=== PATIENT | female | born 1975 | race African-American/Black ===

== ENCOUNTER 2020-12-17 10:53 | Emergency (ER) | payer OTHER, SELFPAY ==
[2020-12-17 11:09] VITALS: BP 145/87; PULSE 78; RESP 12; TEMP 36.3; O2SAT 100
--- NOTE | 2020-12-17 11:30 | ED.FEMALEGU ---
HPI - Female Genitourinary General Chief complaint: Urogenital-Female Stated complaint: POS UTI Time Seen by Provider: 12/17/20 11:18 Source: patient and RN notes reviewed Mode of arrival: ambulatory Limitations: no limitations History of Present Illness HPI Narrative: Patient presents today complaining of urinary frequency and tingling with urination. Symptoms began today. Denies hematuria, abdominal pain, fever, back pain. She has not tried any [id number] treatment prior to arrival. Patient was on Flagyl last month for bacterial vaginosis. She stopped her menstrual cycle last week. Related Data Home Medications Medication Instructions Recorded Confirmed amlodipine 12/17/20 Allergies Allergy/AdvReac Type Severity Reaction Status Date / Time No Known Allergies Allergy Verified 12/17/20 11:01 Review of Systems Review of Systems: Narrative: CONSTITUTIONAL: Denies body aches, fever, chills, or sweats. EYES: Denies visual changes, redness, or discharge. ENT: Denies rhinorrhea, congestion, sore throat, or otalgia. CARDIOVASCULAR: Denies chest pain, palpitations, or edema. RESPIRATORY: Denies cough or dyspnea. GASTROINTESTINAL: Denies abdominal pain, nausea, vomiting, or diarrhea. GENITOURINARY: Denies dysuria or hematuria. + Tingling with urination, urinary frequency SKIN: Denies rash, itching, or wounds. MUSCULOSKELETAL: Denies back pain, joint pain, or myalgia. NEUROLOGIC: Denies headache, numbness, tingling, or weakness. PSYCH: Denies depression or anxiety. PMFSH Comments At time of signature, I have reviewed and agree with nursing past medical, surgical, social and family history unless otherwise noted. Please see nursing chart for further information. There is no relevant family history pertinent to the presenting complaint Exam Narrative: Exam Narrative: GENERAL: Well-appearing, well-nourished, and in no acute distress. HEAD: Normocephalic, atraumatic. EYES: EOMI. No redness or drainage. Conjunctivae normal. ENT: Mucous membranes pink and moist. NECK: Normal AROM. CHEST: No respiratory distress. Clear to auscultation. HEART: Regular rate and rhythm. No murmur appreciated. Normal peripheral pulses. ABDOMEN: Soft, nontender, nondistended, normal active bowel sounds. -CVAT MUSCULOSKELETAL: No bony tenderness. EXTREMITIES: Normal range of motion. No edema. SKIN: Warm, dry, no rash. Capillary refill normal. Normal skin turgor. NEURO: No focal deficits. Alert and oriented x3. Gait steady. PSYCH: Normal affect. No signs of depression or anxiety. Course Vital Signs Vital signs: Vital Signs Temperature 97.3 F L 12/17/20 11:09 Pulse Rate 78 12/17/20 11:09 Respiratory Rate 12 12/17/20 11:09 Blood Pressure 145/87 H 12/17/20 11:09 Pulse Oximetry 100 12/17/20 11:09 Temperature 97.3 F L 12/17/20 11:09 Pulse Rate 78 12/17/20 11:09 Respiratory Rate 12 12/17/20 11:09 Blood Pressure 145/87 H 12/17/20 11:09 Pulse Oximetry 100 12/17/20 11:09 Reviewed. Pt has been instructed to follow up with her PCP regarding her elevated blood pressure today. MDM - Female Genitourinary Differential Diagnosis Differential diagnosis: Likely urinary tract infection and other (Pyelonephritis, interstitial cystitis, vulvovaginitis) Lab Data Attestation: I reviewed the patient's lab results. Labs: Urine Glucose Negative Reference Range: Negative Urine Bilirubin Negative Reference Range: Negative Urine Ketone Negative Reference Range: Negative Urine Specific [place] 1.030 Reference Range:1.001-1.035 Urine Blood 3+ Reference Range: Negativ
== END 2020-12-17 11:37 | disposition home or self-care (01) ==
PROVIDERS: Emergency Provider Nurse Practitioner; PCP Family Medicine
DX: N30.01 Acute cystitis with hematuria (principal); I10 Essential (primary) hypertension
CPT/HCPCS: 81003; 87077; 87086; 87088; 99203; G0463

== ENCOUNTER 2021-06-08 10:10 | Emergency (ER) | payer OTHER, SELFPAY ==
[2021-06-08 10:26] VITALS: BP 147/91; PULSE 81; RESP 18; TEMP 36.4; O2SAT 100
--- NOTE | 2021-06-08 11:39 | ED.GENADULT ---
HPI - General Adult General Chief complaint: Urogenital-Female Stated complaint: POS UTI Source: patient Mode of arrival: ambulatory Limitations: no limitations History of Present Illness HPI narrative: Patient is a 45-year-old -[place] female who presents to the urgent care via POV for evaluation of urinary symptoms that have been present for 2 days. Additionally, she reports dysuria and urinary frequency. Azo improves symptoms. Nothing worsens symptoms. She believes drinking coffee and orange juice caused her UTI. History of UTIs. Today symptoms are similar to previous UTIs. Related Data Home Medications Medication Instructions Recorded Confirmed amlodipine 12/17/20 Allergies Allergy/AdvReac Type Severity Reaction Status Date / Time No Known Allergies Allergy Verified 06/08/21 10:24 Review of Systems Review of Systems: Denies history of urinary pyelonephritis and renal calculi. Pertinent negatives: fever, chills, sweats, change in appetite, poor p.o. intake, malaise, recent weight loss, myalgias, lymphadenopathy, headache, dizziness, STD exposure, painful intercourse, abdominal pain, constipation, nausea, vomiting, diarrhea, abdominal cramping, hematuria, urinary urgency, back pain, urinary incontinence, vaginal bleeding/discharge, penile drainage, testicular pain, shortness of breath, chest pain, and heart palpitations/murmurs. [facility] Past Medical History Medical History (Updated 06/08/21 @ 11:41 by Patricia Felder, LEARNING OFFICER, ) Cystitis Hypertension Exam Narrative: GENERAL: Well-appearing, well-nourished, and in no acute distress. HEAD: Normocephalic, atraumatic. NECK: Supple. No lymphadenopathy or nuchal rigidity. CHEST: Lung sounds are clear to auscultation in bilateral lung bella. No respiratory distress. HEART: Regular rate and rhythm. No murmur, gallop, or rub heard. ABDOMEN: Soft, non-tender, non-distended, normal active bowel sounds in all quadrants. No guarding. No rebound tenderness. No pulsatile or palpable abdominal mass(es). No CVATGU: Bladder non-distended, non-tender EXTREMITIES: Normal range of motion. No edema. SKIN: Warm, dry, no rash. No skin color changes. Excellent turgor. NEURO: No focal deficits. Alert and oriented x3. SPECIAL OBSERVATIONS: Smiling. Laughing. No evidence of discomfort. Course Vital Signs Vital signs: Vital Signs Temperature 97.6 F 06/08/21 10:26 Pulse Rate 81 06/08/21 10:26 Respiratory Rate 18 06/08/21 10:26 Blood Pressure 147/91 H 06/08/21 10:26 Pulse Oximetry 100 06/08/21 10:26 Temperature 97.6 F 06/08/21 10:26 Pulse Rate 81 06/08/21 10:26 Respiratory Rate 18 06/08/21 10:26 Blood Pressure 147/91 H 06/08/21 10:26 Pulse Oximetry 100 06/08/21 10:26 Due to an elevated blood pressure, I had a detailed discussion with the patient and/or guardian regarding the need for follow-up with their primary care provider within the next 3-4 days. Patient verbalized understanding and agreed. Medical Decision Making Differential Diagnosis Differential Diagnosis: Nephrolithiasis, urinary tract infection, pyelonephritis, frequency of micturition, dysuria Medical Records Medical records reviewed: Yes I reviewed the external patient's medical records. Vital Signs Vital Signs: Vital Signs Temperature 97.6 F 06/08/21 10:26 Pulse Rate 81 06/08/21 10:26 Respiratory Rate 18 06/08/21 10:26 Blood Pressure 147/91 H 06/08/21 10:26 Pulse Oximetry 100 06/08/21 10:26 Temperature 97.6 F 06/08/21 10:26 Pulse Rate 81 06/08/21 10:26 Respiratory Rate 18 06/08/21 10:26 Blood Pressure 147/91 H 06/08/21 10:26 Pulse Oximetry 100 06/08/21 10:26 Lab Data Lab results reviewed: Yes I reviewed the patient's lab results. Lab results narrative: Urine dipstick: Color: Yellow; Clarity: Cloudy; Glucose: negative; Bilirubin: negative; Ketones: negative, Specific [place]: 1.025; Blood: 2+; pH: 6.0 Protein: 2+; URO: 0.
== END 2021-06-08 11:00 | disposition home or self-care (01) ==
PROVIDERS: Emergency Provider Nurse Practitioner Family; PCP Family Medicine
DX: N30.90 Cystitis, unspecified without hematuria (principal); I10 Essential (primary) hypertension
CPT/HCPCS: 81003; 87086; 87088; 99213; G0463

== ENCOUNTER 2021-07-28 10:38 | Emergency (ER) | payer OTHER, SELFPAY ==
--- NOTE | 2021-07-28 10:44 | ED.FEMALEGU ---
HPI - Female Genitourinary General Chief complaint: Urogenital-Female Stated complaint: uti symptoms Time Seen by Provider: 07/28/21 10:40 Source: patient and RN notes reviewed History of Present Illness HPI Narrative: Patient is a 46-year-old female who presents the urgent care with complaints of a possible UTI. Patient states that this morning she noticed increased urinary frequency and slight dysuria. Patient does have a history of UTIs and states that she has had 1 in the last 6 months treated at our facility. Patient states that she is increase her water intake this morning but is otherwise not taken anything [id number] for her symptoms. Patient states that she was seeing a urologist and they quit taking her insurance. Patient states that approximately 1 year ago they told her that everything was fine . Patient denies of any fever, chills, nausea, vomiting, abdominal pain, low back pain. No other acute complaints. No acute distress noted. Patient aware of the plan of care. Some parts of this dictation were generated by voice recognition software and may contain typographical and/or grammatical inaccuracies. Related Data Home Medications Medication Instructions Recorded Confirmed amlodipine 5 mg PO DAILY 12/17/20 06/08/21 Allergies Allergy/AdvReac Type Severity Reaction Status Date / Time No Known Allergies Allergy Verified 06/08/21 10:24 Review of Systems Review of Systems: CONSTITUTIONAL: Denies fever, chills, or sweats. EYES: Denies visual changes, redness, or discharge. ENT: Denies rhinorrhea, congestion, sore throat, or otalgia. CARDIOVASCULAR: Denies chest pain, palpitations, or edema. RESPIRATORY: Denies cough or dyspnea. GASTROINTESTINAL: Denies abdominal pain, nausea, vomiting, or diarrhea. GENITOURINARY: Reports of urinary frequency and dysuria SKIN: Denies rash or itching. MUSCULOSKELETAL: Denies back pain, joint pain, or myalgia. NEUROLOGIC: Denies headache, numbness, or weakness. All other systems reviewed are negative, except as documented in HPI. [facility] Past Medical History Medical History (Updated 07/28/21 @ 11:03 by JIM Méndez) Cystitis Hypertension Comments At the time of my signature, I reviewed and agree with the nursing past medical, surgical, social, and family history. There is no relevant family history pertinent to the patient complaint. Exam Narrative: GENERAL: This is a well-nourished, well-developed patient, in no apparent distress. HEAD: normocephalic, atraumatic. EYES: PERRL. Sclera clear/white. Vision is grossly intact. EARS: External ears normal NOSE: External nose normal with no obvious nasal discharge, nares without redness, no rhinorrhea. THROAT: Mucous membranes moist NECK: Neck supple CARDIOVASCULAR: Regular rate and rhythm without murmurs, gallops, or rubs. RESPIRATORY: Clear to auscultation. Breath sounds equal bilaterally. No wheezes, rales, or rhonchi. GASTROINTESTINAL: Abdomen soft, non-tender, nondistended. Bowel sounds are active. SKIN: warm, intact with no suspicious lesions or rash, good texture and turgor. NEURO: awake, alert, and oriented to person, place and time. There were no obvious focal neurologic abnormalities. EXTREMITIES: No clubbing, cyanosis, or edema. BACK: Negative bilateral CVA tenderness Course Vital Signs Vital signs: Vital Signs Temperature 97.8 F 07/28/21 10:48 Pulse Rate 85 07/28/21 10:48 Respiratory Rate 16 07/28/21 10:48 Blood Pressure 152/84 H 07/28/21 10:48 Pulse Oximetry 100 07/28/21 10:48 Temperature 97.8 F 07/28/21 10:48 Pulse Rate 85 07/28/21 10:48 Respiratory Rate 16 07/28/21 10:48 Blood Pressure 152/84 H 07/28/21 10:48 Pulse Oximetry 100 07/28/21 10:48 Reviewed-patient is informed that they may have pre-hypertension or hypertension based on a blood pressure reading in the department. I recommend the patient call the primary care provider listed on their dischar
[2021-07-28 10:48] VITALS: BP 152/84; PULSE 85; RESP 16; TEMP 36.6; O2SAT 100
== END 2021-07-28 11:17 | disposition home or self-care (01) ==
PROVIDERS: Emergency Provider Nurse Practitioner Family; PCP Family Medicine
DX: N39.0 Urinary tract infection, site not specified (principal); I10 Essential (primary) hypertension
CPT/HCPCS: 81003; 87086; 87088; 99213; G0463

== ENCOUNTER 2022-10-15 10:54 | Outpatient (CLI) | payer OTHER, SELFPAY ==
--- NOTE | ~2022-10-15 | US_ITS ---
EXAMINATION: US pelvic complete w TV DATE: 10/15/2022 11:50 INDICATION: Pelvic pain TECHNIQUE: Multiple transabdominal and endovaginal sonographic images of the pelvis were obtained. COMPARISON: None. FINDINGS: The uterus measures 10.6 x 5.1 x 7.4 cm. There are multiple uterine masses which have the a ppearance of intramural fibroids. The largest measures up to 2.6 cm anteriorly in the lower body of t he uterus. The endometrial complex measures 3 mm. The right ovary measures 2.3 x 1.3 x 2.4 cm. The le ft ovary measures 2.3 x 3.4 x 2.7 cm and contains a 2.9 cm cyst. There is normal vascular flow in the left ovary. Vascular flow is not well demonstrated in the right ovary however the ovary is normal in size and appearance. Finding may be due to position of the ovary. There is no free fluid in the pelv is. IMPRESSION: 1. Multiple uterine fibroids. Reviewed, dictated and finalized at location B. USTER
== END 2022-10-15 10:55 | disposition home or self-care (01) ==
LOC: ANHIMG 10:58
PROVIDERS: PCP Family Medicine; Visit Provider Nurse Practitioner
DX: D25.9 Leiomyoma of uterus, unspecified (principal)
CPT/HCPCS: 76830; 76856

== ENCOUNTER 2023-04-28 08:56 | Outpatient (CLI) | payer OTHER, SELFPAY ==
--- NOTE | ~2023-04-28 | MR_ITS ---
EXAMINATION: MR lower leg LT wo/w con DATE: 04/28/2023 10:00 INDICATION: Painful mass of the anterior lower leg. TECHNIQUE: Magnetic resonance imaging (MRI) of the left lower leg was performed without and with 18 m L MultiHance intravenous contrast. COMPARISON: None. FINDINGS: Bone alignment is normal. No fracture. Bone marrow signal intensity is normal. There is a s mall knee joint effusion. There is a small Alexandre's cyst. There is a skin marker anterior to the proxi mal tibia. There is subcutaneous fat stranding anterior to the proximal tibia. IMPRESSION: 1. Subcutaneous fat stranding anterior to the proximal tibia, consistent with edema versus inflammati on. Reviewed, dictated and finalized at location E. IMPRESSION: 1. Subcutaneous fat stranding anterior to the proximal tibia, consistent with e david versus inflammation.
== END 2023-04-28 08:57 | disposition home or self-care (01) ==
PROVIDERS: PCP Physician Assistant Medical; Visit Provider Orthopaedic Surgery
DX: M79.662 Pain in left lower leg (principal); M79.89 Other specified soft tissue disorders
CPT/HCPCS: 73720; A9577

== ENCOUNTER 2023-10-08 14:36 | Outpatient (CLI) | payer OTHER, SELFPAY ==
--- NOTE | ~2023-10-08 | US_ITS ---
EXAMINATION: US pelvic complete w TV DATE: 10/08/2023 16:07 INDICATION: Abnormal uterine bleeding Comparison:Ultrasound dated 10/15/2022 TECHNIQUE: Multiple transabdominal and endovaginal sonographic images of the pelvis performed. FINDINGS: The uterus measures 10.1 x 5.4 x 6.9 cm. Uterine myometrium is difficult to penetrate. No d iscrete fibroids identified. The endometrial complex measures 4 mm. The right ovary measures 2.1 x 1 x 1.3 cm and the left ovary measures 1.9 x 2.1 x 2 cm. There is a le ft ovarian cyst measuring 1.7 cm. There are small follicles in each ovary. Normal doppler signal in b oth ovaries. There is no free fluid in the pelvis. There are no abnormal masses seen on either side. IMPRESSION: 1. Small 1.7 cm left ovarian cyst. Reviewed, dictated and finalized at location L. PURSER
== END 2023-10-08 14:37 | disposition home or self-care (01) ==
PROVIDERS: PCP Physician Assistant Medical; Visit Provider Nurse Practitioner
DX: N93.8 Other specified abnormal uterine and vaginal bleeding (principal); N83.202 Unspecified ovarian cyst, left side
CPT/HCPCS: 76830; 76856

== ENCOUNTER 2023-10-28 13:17 | Outpatient (CLI) | payer OTHER, SELFPAY ==
[2023-10-28 14:38] LABS: Anion Gap 7 mmol/L (8-16); Blood Urea Nitrogen 14 mg/dL (7-17); Calcium 9.3 mg/dL (8.4-10.2); Carbon Dioxide 31 mmol/L (22-30); Chloride 101 mmol/L (98-107); Estimated Glomerular Filt Rate > 60; Glucose 104 mg/dL (65-110); Potassium 3.3 mmol/L (3.4-5.0); Sodium 139 mmol/L (137-145)
== END 2023-10-28 13:18 | disposition home or self-care (01) ==
LOC: ANHSURGERY 13:18
PROVIDERS: Anesthesiology; PCP Physician Assistant Medical; Visit Provider Obstetrics & Gynecology Gynecology
DX: Z79.899 Other long term (current) drug therapy (principal); Z01.818 Encounter for other preprocedural examination
CPT/HCPCS: 36415; 80048

== ENCOUNTER 2023-11-04 01:11 | Day surgery (SDC) | payer OTHER, SELFPAY ==
[2023-10-24 15:11] VITALS: BMI 36.3
--- NOTE | 2023-10-24 15:29 | SUR.PREOP ---
Report to the Outpatient Waiting Room, entrance under the green pavilion located off [facility], at time 1015 on date 11/04/23. Planned Procedure Time: 1215. Time changes happen often and if your time is changed the preop area will call you the afternoon before. - You and your visitor will be asked to self-screen and do not enter if you have any COVID symptoms. - A mask is optional within the hospital at this time. Patients may have clear liquids (water, carbonated beverages, clear teas, apple juice) until 3 hours prior to surgery with a maximum of 20 ounces. - No food from midnight until time of surgery - Infants may have breast milk until 4 hours before surgery, formula 6 hours prior to surgery. - Children will be allowed to drink immediately following surgery. If applicable, please bring a bottle or sippy cup to assist with drinking. Juice, water, soda, and popsicles are readily available. For infants on formula, please bring formula the day of surgery. Pacifiers are allowed. Take the following medications with a SIP of water the morning of surgery: AMLODIPINE DO NOT STOP ANY OF YOUR OTHER PRESCRIPTION MEDICATIONS PRIOR TO SURGERY ?EXCEPT THE FOLLOWING Medications to discontinue per physician STOP ALL SUPPLIMENTS AND VITAMINS 3 DAYS PRIOR Date to take last dose 10/20/23 Please no make-up, nail indonesian, hairspray, perfume, deodorant, or body powder the day of surgery. No jewelry (including any body piercings) or valuables the day of surgery, leave them at home. Please take a shower or bath the night before, or the morning of, surgery with an antibacterial soap. Wear comfortable, loose fitting clothing. Children are encouraged to wear pajamas. - Jewelry must be removed prior to entering the operating room. Rings and piercings that are not removed may be cut off. - The hospital will not accept responsibility for valuables. - Please leave all valuables, including medications, at home the day of surgery. If you are going home after surgery, a licensed tractor driver teamster must drive you home. - NO public transportation without another adult if you receive anesthesia. - We recommend that an adult stay with you for 24 hours following discharge. - We also recommend that you do not drive, make important decision, drink alcoholic beverages, or take any drugs that were not prescribed by your health care provider for at least 24 hours after your discharge time. For Pediatric surgeries, we recommend two adults accompany the child home. Follow any additional instructions given to you from your surgeon. If you or anyone in your household have experienced Covid symptoms in the past week, please notify your surgeon or the nurse liaison at the phone number below for possible testing. Telephone instructions given to BRENNAN PENG and asked if any additional questions and then verbalized understanding. Patient advised to call surgeon office or pre surgery nurse liaison [phone] if any additional questions.
--- NOTE | 2023-11-04 08:14 | P.HP_ITS ---
History of Present Illness History of Present Illness Consent: Risks, benefits, and alternatives have been discussed and questions answered. Patient agrees to proceed with procedure. Chief complaint: abnormal uterine bleeding Narrative: Shaista Gutierrez is a 48 year old female with a prolonged bleeding episode lasting approximately 1 month. Patient has had somewhat irregular cycles for the past 6 months. She skipped her cycle in May, June blood for 9 days, skipped July, and light bleeding in August. September she bled throughout the entire month. It was recommended to undergo D&C hysteroscopy. Pelvic ultrasound showed no abnormalities. Risks of infection, bleeding, perforation, and possible pathology are discussed. Due to her prior ablation, the patient was given Cytotec for 1 week prior to the procedure. The additional risk of inability to enter the cavity was also discussed. Patient voices understanding and agrees to proceed. Review of Systems Review of Systems: not repeated day of surgery; patient states no changes in status PMFSH Past Medical History Medical History (Updated 11/04/23 @ 08:18 by Criselda Machado MD) Hypertension Surgical History Surgical History (Updated 11/04/23 @ 08:16 by Criselda Machado MD) History of bilateral tubal ligation History of x2 Status post hysteroscopic ablation of endometrium Status post knee surgery Status post laparoscopic cholecystectomy Social History Social History Smoking status: Never smoker Living arrangements: with family Spiritual care concerns: No Meds Home Medications and Allergies Home Medications Medication Instructions Recorded Confirmed Type amlodipine 5 mg tablet 5 mg PO DAILY 12/17/20 10/24/23 History hydrochlorothiazide 12.5 mg tablet 12.5 mg PO DAILY 10/24/23 10/24/23 History losartan 50 mg tablet 50 mg PO DAILY 10/24/23 10/24/23 History potassium chloride 20 mEq 50 meq PO DAILY 10/24/23 10/24/23 History tablet,extended release(part/cryst) Allergies Allergy/AdvReac Type Severity Reaction Status Date / Time No Known Allergies Allergy Verified 10/24/23 15:14 Exam Const: General: healthy appearing and alert Orientation/consciousness: patient oriented x3 Resp: Effort & Inspection: normal respiratory effort : External Female Exam: normal external appearance Speculum Exam - Vagina: normal appearance of the vagina and normal vaginal discharge Speculum Exam - Cervix: normal appearance of the cervix Bimanual exam- vagina & uterus: uterine size normal and consistency normal Bimanual Exam- Adnexa, other: normal adnexae and No adnexal tenderness Neuro: General: patient oriented x3 Assessment and Plan Assessment and plan (1) Menorrhagia: Code(s): N92.0 - Excessive and frequent menstruation with regular cycle Status: Acute Assessment and Plan: plan to proceed with D&C hysteroscopy
--- NOTE | 2023-11-04 08:14 | WPDHPUPDATE1 ---
History and Physical Update Update Date/Time: 11/04/23 08:14 History and Physical has been reviewed, including an updated exam of the patient. There are NO changes in the patient's condition. Risks, benefits, and alternatives have been discussed and questions answered. Patient agrees to proceed with procedure.
[2023-11-04] MEDS: ACETAMINOPHEN 500 MG TABLET 1000 MG PO (09:55)
[2023-11-04 09:57] VITALS: BP 130/60; PULSE 71; RESP 16; TEMP 36.4; O2SAT 100
--- NOTE | 2023-11-04 10:25 | P.PNAN_ITS ---
Anes - Initial Pre Proc Eval Procedure: Operation Date: 11/04/23 11:30 Proposed Procedures p Hysteroscopy Dilation and Curettage - Criselda Machado MD Date/Time: 11/04/23 10:25 Surgeon: Criselda Machado MD Pre Op Diagnosis: abnormal uterine bleeding Patient Data Age: 48 Gender: F Height: 1.57 m Weight: 90 kg Last Vital Signs Temp 36.4 C 11/04/23 09:57 Pulse 71 11/04/23 09:57 Resp 16 11/04/23 09:57 BP 130/60 11/04/23 09:57 Pulse Ox 100 11/04/23 09:57 O2 Del Method Room Air 11/04/23 09:57 Allergies Allergy/AdvReac Type Severity Reaction Status Date / Time No Known Allergies Allergy Verified 11/04/23 09:56 Home Medications Medication Instructions Recorded Confirmed Type amlodipine 5 mg tablet 5 mg PO DAILY 12/17/20 11/04/23 History hydrochlorothiazide 12.5 mg tablet 12.5 mg PO DAILY 10/24/23 11/04/23 History losartan 50 mg tablet 50 mg PO DAILY 10/24/23 11/04/23 History potassium chloride 20 mEq 50 meq PO DAILY 10/24/23 11/04/23 History tablet,extended release(part/cryst) Patient hx anesthesia problems: none Family hx anesthesia problems: none Results Review: All pre-operative results and documents have been reviewed as part of the pre- operative evaluation. [facility] Past Medical History Medical History Hypertension Surgical History Surgical History History of bilateral tubal ligation History of x2 Status post hysteroscopic ablation of endometrium Status post knee surgery Status post laparoscopic cholecystectomy Social History Social History Smoking status: Never smoker Living arrangements: with family Spiritual care concerns: No Anes - Eval Final PreProcedure Day of Procedure 11/04/23 10:25 Patient weight: obese Heart: regular rate and rhythm Lungs: clear to auscultation Airway: Mallampati scale class III Neurological: alert and oriented Last oral intake: >/= 8 hours ASA classification: II Emergent: no Anesthetic plan: proceed Anesthesia type and monitoring: general GIVS and standard monitoring Results Review: All pre-operative results and documents have been reviewed as part of the pre- operative evaluation. Informed Consent: The patient's anesthetic plan and its attendant risks and benefits were discussed with the patient/family/POA. Questions were solicited and answers provided to the satisfaction of the patient/family/POA.
[2023-11-04] MEDS: LACTATED RINGERS 1,000 ML 30 ML IV CONT (10:33)
[2023-11-04 11:18] VITALS: BP 130/65; PULSE 64; RESP 14; O2SAT 99
--- NOTE | 2023-11-04 11:18 | W.PM.PROC2 ---
Procedure Note - Detailed Date of Procedure 11/04/23 Pre-op Diagnosis menorrhagia Post-op Diagnosis Same Procedure Performed D&C hysteroscopy Surgeon Criselda Machado MD Anesthesia MAC Findings The uterus sounds to 8cm. 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 No abnormalities evident. Endometrium appears grossly normal. Description of Procedure The patient is taken to the operating room and placed under anesthesia in the dorsal lithotomy position. The bivalve speculum was placed in the vagina and the cervix grasped on the anterior lip with a tenaculum. The external os is stenotic and required the 4/5 dilator to open. The uterus is then sounded to 8cm. The diagnostic hysteroscope was placed and through hydro dissection the left cavity is entered. The left tubal ostia was visible and there is no right tubal ostia noted. The endometrium was smooth without lesions or scar tissue. The hysteroscope is withdrawn slowly and a separate cavity is found on the right. Through hydrodissection I was able to enter the right cavity and the right tubal ostia is visible and the central portion of the cavity is smooth with no lesions or scar tissue. The small Aveeta resection device is placed and the right cavity generally biopsied. The hysteroscope was placed in the left cavity and the resection device placed and used to generally biopsied the cavity. The resection device was removed and the hysteroscope slowly withdrawn. The septum appears to come down all the way to the internal os. All instruments were then removed. Sponge, needle, and instrument counts are correct per the OR staff. The patient was awakened from anesthesia and taken to recovery in stable condition. Estimated Blood Loss 5 Drains No Packing No Pathology Yes ( Endometrial shavings) Complications No immediate complications Condition Stable Disposition PACU
[2023-11-04 11:45] VITALS: BP 128/62; PULSE 70; RESP 14; O2SAT 100
[2023-11-04 12:15] VITALS: BP 117/50; PULSE 57; RESP 20
== END 2023-11-04 12:31 | disposition home or self-care (01) ==
PROVIDERS: PCP Physician Assistant Medical; Visit Provider Obstetrics & Gynecology Gynecology
PROC: 0U5B8ZZ Destruction of Endometrium, Via Natural or Artificial Opening Endoscopic (ICD-10-PCS; CPT 58563; principal; 2023-11-04 11:30)
DX: N92.0 Excessive and frequent menstruation with regular cycle (principal); I10 Essential (primary) hypertension
CPT/HCPCS: 58558; 88305; A9270; J2250; J2704; J3010; J7120